=== PATIENT | female | born 1955 | race Caucasian/White ===

== ENCOUNTER 2020-08-30 11:11 | Emergency (ER) | payer MEDICARE, OTHER ==
[~2020-08-30 11:11] MED LIST: CELEXA20 MG PO; COLACE 100MG C100 MG PO; FENOFIBRATE145 MG PO; FLONASE 0.05% N16 GM; FLUNISOLIDE25 ML; IBUPROFEN600 MG PO; KEFLEX500 MG PO; LIPITOR TAB 2020 MG PO; LISINOPRIL20 MG PO; METOPROLOL TART50 MG PO; NEURONTIN400 MG PO; NORCO 5-325 TA1 EACH PO; NORVASC 5 MG TAB5 MG PO; RANITIDINE HCL300 M1 PO; TAMOXIFEN CITRA20 MG PO; TOPROL XL50 MG PO; TRICOR145 MG PO; ZETIA10 MG PO
[2020-08-30 13:04] LABS: HEMOGLOBIN 7.9 gm/dl (12.3-15.3); RED BLOOD COUNT 3.9 M/UL (4.00-5.10); WHITE BLOOD COUNT 4.7 K/UL (4.5-11.0)
[2020-08-30 13:43] LABS: BUN/CREATININE RATIO 17 (0-10)
== END 2020-08-30 15:08 | disposition home or self-care (01) ==
LOC: ER1 11:11
PROVIDERS: Physician Assistant
DX: D64.9 Anemia, unspecified (principal); E11.9 Type 2 diabetes mellitus without complications; I10 Essential (primary) hypertension; Z85.3 Personal history of malignant neoplasm of breast; Z90.49 Acquired absence of other specified parts of digestive tract; Z90.710 Acquired absence of both cervix and uterus; Z87.891 Personal history of nicotine dependence
CPT/HCPCS: 80053; 82272; 85025; 85610; 85730; 86850; 86900; 86901; 99284

== ENCOUNTER 2020-09-04 17:23 | Emergency (ER) | payer MEDICARE, OTHER ==
[2020-09-04 18:35] LABS: HEMOGLOBIN 7.7 gm/dl (12.3-15.3); RED BLOOD COUNT 3.93 M/UL (4.00-5.10); WHITE BLOOD COUNT 5.3 K/UL (4.5-11.0)
[2020-09-04 19:05] LABS: BUN/CREATININE RATIO 17 (0-10)
== END 2020-09-05 03:21 | disposition short-term general hospital (02) ==
LOC: ER1 17:23
PROVIDERS: Physician Assistant
DX: E27.8 Other specified disorders of adrenal gland (principal); E10.9 Type 1 diabetes mellitus without complications; I10 Essential (primary) hypertension; E78.5 Hyperlipidemia, unspecified; D50.9 Iron deficiency anemia, unspecified; Z90.49 Acquired absence of other specified parts of digestive tract
CPT/HCPCS: 80053; 81001; 82550; 82553; 83605; 83874; 84484; 85025; 85379; 87086; 93005; 96374; 96375; 96376; 99285; J1170; J1720; J1885; J2270; J2405; J7030; Q9967

== ENCOUNTER → 2020-10-07 | Outpatient (CLI) | payer MEDICARE, OTHER ==
[~2020-10-07] MED LIST changes: +ALLOPURINOL300 MG PO; +CYCLOBENZAPRINE10 MG PO; +GLUCOPHAGE 500500 MG PO; +NEURONTIN300 MG PO; +PHENERGAN 12.12.5 MG PR; +PHENERGAN 25 MG25 M1 PO; +PROTONIX 40 MG40 M1 PO; +VITAMIN B12-FO1 EACH PO; +VITAMIN D 40400 UNIT PO; +ZOFRAN4 MG PO
== END ==
LOC: MAMO 13:00
DX: Z12.31 Encounter for screening mammogram for malignant neoplasm of breast (principal); C50.519 Malignant neoplasm of lower-outer quadrant of unspecified female breast; C77.3 Secondary and unspecified malignant neoplasm of axilla and upper limb lymph nodes
CPT/HCPCS: 77063; 77067

== ENCOUNTER 2020-10-21 08:16 | Emergency (ER) | payer MEDICARE, OTHER ==
[~2020-10-21 08:16] MED LIST changes: -ALLOPURINOL300 MG PO; -CYCLOBENZAPRINE10 MG PO; -GLUCOPHAGE 500500 MG PO; -NEURONTIN300 MG PO; -PHENERGAN 12.12.5 MG PR; -PHENERGAN 25 MG25 M1 PO; -PROTONIX 40 MG40 M1 PO; -VITAMIN B12-FO1 EACH PO; -VITAMIN D 40400 UNIT PO; -ZOFRAN4 MG PO
[2020-10-21 09:09] LABS: HEMOGLOBIN 7.7 gm/dl (12.3-15.3); WHITE BLOOD COUNT 12.1 K/UL (4.5-11.0)
[2020-10-21 09:56] LABS: BUN/CREATININE RATIO 17 (0-10)
[2020-10-21] MEDS ORDERED: ZOFRAN4 MG PO (13:03)
[2020-10-21] MEDS ORDERED: PHENERGAN 12.12.5 MG PR (13:10)
[2020-10-26 17:27] LABS: RED BLOOD COUNT 4.16 M/UL (4.00-5.10)
[2020-11-17] MEDS ORDERED: CYCLOBENZAPRINE10 MG PO (07:39)
[2020-11-17] MEDS ORDERED: PHENERGAN 25 MG25 M1 PO (07:42)
[2020-11-17] MEDS ORDERED: GLUCOPHAGE 500500 MG PO (07:43)
[2020-11-17] MEDS ORDERED: NEURONTIN300 MG PO (07:44)
[2020-11-17] MEDS ORDERED: ALLOPURINOL300 MG PO (07:45)
[2020-11-17] MEDS ORDERED: VITAMIN D 40400 UNIT PO (07:47)
[2020-11-17] MEDS ORDERED: PROTONIX 40 MG40 M1 PO (07:48)
[2020-11-17] MEDS ORDERED: VITAMIN B12-FO1 EACH PO (07:48)
[2020-11-17] MEDS ORDERED: ZETIA10 MG PO (07:48)
== END 2020-10-21 13:50 | disposition home or self-care (01) ==
LOC: ER1 08:16
PROVIDERS: Physician Assistant
DX: R11.2 Nausea with vomiting, unspecified (principal); R63.0 Anorexia; Z20.822 Contact with and (suspected) exposure to COVID-19
CPT/HCPCS: 71045; 80053; 81001; 82550; 82553; 83605; 83690; 83874; 84484; 85007; 85027; 87086; 93005; 96374; 99284; J2405; J7030; Q9967; U0002

== ENCOUNTER → 2020-10-26 | Outpatient (CLI) | payer MEDICARE, OTHER ==
[~2020-10-26] MED LIST changes: +ALLOPURINOL300 MG PO; +CYCLOBENZAPRINE10 MG PO; +GLUCOPHAGE 500500 MG PO; +NEURONTIN300 MG PO; +PHENERGAN 12.12.5 MG PR; +PHENERGAN 25 MG25 M1 PO; +PROTONIX 40 MG40 M1 PO; +VITAMIN B12-FO1 EACH PO; +VITAMIN D 40400 UNIT PO; +ZOFRAN4 MG PO
[2020-10-27 09:46] LABS: HEMOGLOBIN 6.7 gm/dl (12.3-15.3)
== END ==
LOC: LAB 15:49
PROVIDERS: Internal Medicine Hematology & Oncology
DX: D64.9 Anemia, unspecified (principal)
CPT/HCPCS: 83010; 83615; 85014; 85018; 85045; 85610; 85730; 86850; 86880; 86900; 86901; 86920

== ENCOUNTER → 2020-10-27 | Outpatient (CLI) | payer MEDICARE, OTHER ==
[~2020-10-27] VITALS: Ht 160 cm; Wt 77.6 kg
== END ==
LOC: OPSV 08:00
DX: D64.9 Anemia, unspecified (principal)
CPT/HCPCS: 36415; 36430; 96374; J1940; P9016

== ENCOUNTER → 2020-11-03 | Outpatient (CLI) | payer MEDICARE, OTHER ==
[2020-11-03 12:56] LABS: HEMOGLOBIN 8.5 gm/dl (12.3-15.3); RED BLOOD COUNT 4.06 M/UL (4.00-5.10); WHITE BLOOD COUNT 9.9 K/UL (4.5-11.0)
== END ==
LOC: LAB 11:20
PROVIDERS: Internal Medicine Hematology & Oncology
DX: D64.9 Anemia, unspecified (principal); R79.1 Abnormal coagulation profile
CPT/HCPCS: 36415; 85027

== ENCOUNTER 2020-11-14 14:53 | Emergency (ER) | payer MEDICARE, OTHER ==
[~2020-11-14 14:53] MED LIST changes: -ALLOPURINOL300 MG PO; -CYCLOBENZAPRINE10 MG PO; -GLUCOPHAGE 500500 MG PO; -NEURONTIN300 MG PO; -PHENERGAN 25 MG25 M1 PO; -PROTONIX 40 MG40 M1 PO; -VITAMIN B12-FO1 EACH PO; -VITAMIN D 40400 UNIT PO
[2020-11-14 16:14] LABS: HEMOGLOBIN 7.1 gm/dl (12.3-15.3)
[2020-11-14 16:37] LABS: BUN/CREATININE RATIO 15 (0-10)
[2020-11-14 16:47] LABS: RED BLOOD COUNT 3.38 M/UL (4.00-5.10); WHITE BLOOD COUNT 8.7 K/UL (4.5-11.0)
[2020-11-17] MEDS ORDERED: CYCLOBENZAPRINE10 MG PO (07:39)
[2020-11-17] MEDS ORDERED: PHENERGAN 25 MG25 M1 PO (07:42)
[2020-11-17] MEDS ORDERED: GLUCOPHAGE 500500 MG PO (07:43)
[2020-11-17] MEDS ORDERED: NEURONTIN300 MG PO (07:44)
[2020-11-17] MEDS ORDERED: ALLOPURINOL300 MG PO (07:45)
[2020-11-17] MEDS ORDERED: VITAMIN D 40400 UNIT PO (07:47)
[2020-11-17] MEDS ORDERED: ZETIA10 MG PO (07:48)
[2020-11-17] MEDS ORDERED: VITAMIN B12-FO1 EACH PO (07:48)
[2020-11-17] MEDS ORDERED: PROTONIX 40 MG40 M1 PO (07:48)
== END 2020-11-14 23:30 | disposition home or self-care (01) ==
LOC: ER1 14:53
PROVIDERS: Physician Assistant
DX: R03.1 Nonspecific low blood-pressure reading (principal); D64.9 Anemia, unspecified; Z90.49 Acquired absence of other specified parts of digestive tract; E11.9 Type 2 diabetes mellitus without complications; I10 Essential (primary) hypertension; Z85.3 Personal history of malignant neoplasm of breast; Z90.710 Acquired absence of both cervix and uterus; Z20.822 Contact with and (suspected) exposure to COVID-19
CPT/HCPCS: 36415; 36430; 80053; 81001; 82272; 82550; 82553; 83690; 83874; 84484; 85025; 86850; 86900; 86901; 86920; 93005; 99284; P9016; Q9967; U0003

== ENCOUNTER → 2020-11-17 | Day surgery (SDC) | payer MEDICARE, OTHER ==
[~2020-11-17] MED LIST changes: +ALLOPURINOL300 MG PO; +CYCLOBENZAPRINE10 MG PO; +GLUCOPHAGE 500500 MG PO; +NEURONTIN300 MG PO; +PHENERGAN 25 MG25 M1 PO; +PROTONIX 40 MG40 M1 PO; +VITAMIN B12-FO1 EACH PO; +VITAMIN D 40400 UNIT PO
== END | disposition home or self-care (01) ==
LOC: OR 06:35
DX: D50.0 Iron deficiency anemia secondary to blood loss (chronic) (principal); K29.51 Unspecified chronic gastritis with bleeding; K21.01 Gastro-esophageal reflux disease with esophagitis, with bleeding; K31.9 Disease of stomach and duodenum, unspecified; K57.30 Diverticulosis of large intestine without perforation or abscess without bleeding; K64.1 Second degree hemorrhoids; E11.9 Type 2 diabetes mellitus without complications; I10 Essential (primary) hypertension; E78.00 Pure hypercholesterolemia, unspecified; E66.3 Overweight; Z87.891 Personal history of nicotine dependence; Z68.29 Body mass index [BMI] 29.0-29.9, adult; Z79.84 Long term (current) use of oral hypoglycemic drugs; Z79.899 Other long term (current) drug therapy
CPT/HCPCS: 82962; J2405; J2704; J7040

== ENCOUNTER 2020-11-19 08:47 | Emergency (ER) | payer MEDICARE, OTHER ==
[2020-11-19 12:26] LABS: HEMOGLOBIN 7.6 gm/dl (12.3-15.3); RED BLOOD COUNT 3.51 M/UL (4.00-5.10); WHITE BLOOD COUNT 13.3 K/UL (4.5-11.0)
[2020-11-19 12:52] LABS: BUN/CREATININE RATIO 24 (0-10)
[2020-11-19] MEDS ORDERED: PHENERGAN 25 MG25 M1 PO (13:38)
== END 2020-11-19 14:40 | disposition home or self-care (01) ==
LOC: ER1 08:47
PROVIDERS: Family Medicine
DX: M79.605 Pain in left leg (principal); E11.40 Type 2 diabetes mellitus with diabetic neuropathy, unspecified; I10 Essential (primary) hypertension; Z79.899 Other long term (current) drug therapy; D64.9 Anemia, unspecified; D69.6 Thrombocytopenia, unspecified
CPT/HCPCS: 73552; 73590; 80053; 85007; 85027; 86850; 86900; 86901; 99283

== ENCOUNTER → 2020-11-30 | Outpatient (CLI) | payer MEDICARE, OTHER ==
[2020-11-30 14:06] LABS: RED BLOOD COUNT 3.47 M/UL (4.00-5.10)
[2020-11-30 14:11] LABS: HEMOGLOBIN 8.2 gm/dl (12.3-15.3)
[2020-12-01 14:47] LABS: WHITE BLOOD COUNT 35.8 K/UL (4.5-11.0)
== END ==
LOC: OPSV 12:48
PROVIDERS: Internal Medicine Hematology & Oncology
DX: D64.9 Anemia, unspecified (principal)
CPT/HCPCS: 36415; 85007; 85027; 86850; 86900; 86901